=== PATIENT | female | born 1970 | race Caucasian/White ===

== ENCOUNTER 2017-02-05 10:15 | Day surgery (SDC) | payer OTHER ==
[~2017-02-05] VITALS: Ht 172.7 cm; Wt 93.0 kg
[~2017-02-05 10:15] MED LIST: 0.9% Sodium Chloride 1,000 ML IV SCH; ALBU90AE IH; LEVO150T5 PO; NAPR220C11 PO; Sodium Chloride LOK Flush 10 mL Syringe IV PRN; TRIA1TAB5 PO; fentaNYL-PF 50 mCg/mL 2 mL Inj IVPUSH PRN
[2017-02-05] MEDS ORDERED: Propofol 10,000 mCg/mL 20 mL Inj ONE (10:16)
[2017-02-05] MEDS ORDERED: Ketamine 10 mg/mL 20 mL Inj ONE (10:16)
[2017-02-05 10:35] VITALS: BP 123/79; PULSE 66; O2SAT 97
[2017-02-05 11:52] VITALS: BP 118/73; PULSE 67; RESP 14; O2SAT 99
[2017-02-05 12:00] VITALS: BP 114/75; PULSE 68; RESP 14; O2SAT 100
[2017-02-05 12:09] VITALS: BP 112/76; PULSE 65; RESP 16; O2SAT 100
--- NOTE | 2017-02-05 13:04 | PCM.ANEP1 ---
Post Anesthesia PACU Phase 1 Assessment Vital Signs Vital Signs Date Time Temp Pulse Resp B/P Pulse Ox O2 Delivery O2 Flow Rate FiO2 02/05/17 12:09 65 16 112/76 100 Room Air 02/05/17 12:00 68 14 114/75 100 Room Air 02/05/17 11:52 67 14 118/73 99 Room Air 02/05/17 10:35 66 123/79 97 Room Air Anesthetic Administered: GA Level of Alertness: Awake, talking Pain: No Nausea or Vomiting: No CV Function & Hydration Stable: Yes Airway Device: Oxygen Delivery: Room Air Lungs: Clear to Auscultation PACU Phase 2 Assessment Complications: No Follow up Care: N/A Patient Instructions Provided: N/A Terrell Dong MD Feb 05, 2017 13:04
--- NOTE | 2017-02-05 14:23 | ENDO ---
[address] [address] ENDOSCOPY PROCEDURE PATIENT: ODALIS JONES : 1970 MR#: [id number] ADMIT: 02/05/2017 JOB ID: [id number] DATE: 02/05/2017 PROCEDURE: Colonoscopy. INDICATION: Family history of colon cancer. The patient's ASA classification is 1. Mallampati score is 2. MEDICATIONS: 1. Versed 5 mg. 2. Fentanyl 150 mcg. 3. In addition, anesthesia rescue was needed as we were unable to adequately sedate the patient as patient was having pain despite increasing sedation. Please see anesthesia report for details. INSTRUMENT USED: PCF H 180 AL. PREPARATION QUALITY: Was good. PROCEDURE DETAILS: After informed consent was obtained, the patient was brought into the GI suite, where she was placed on oxygen via nasal cannula and monitored with continuous pulse oximeter, telemetry and blood pressure monitoring. A time-out was performed. Then, she was placed in the left lateral decubitus position and medications were administered for sedation. Digital rectal examination was performed, which was unremarkable. The colonoscope was then inserted into the rectum and advanced under direct visualization to the cecum, which was identified by the presence of the ileocecal valve and appendiceal orifice. Once the cecum was reached, the colonoscope was withdrawn back into the rectum as the mucosa and lumen were examined. In the rectum, retroflexion was performed. Following retroflexion, remaining air in the rectum was suctioned, and procedure was completed. FINDINGS: 1. In the transverse colon, there was approximately 5-6 mm flat polyp that was lifted using normal saline and then removed with a hot snare. Following removal, there was a portion of the polyp that still remained and this was removed with Jumbo biopsy forceps. 2. In the sigmoid colon, there was a diminutive polyp that was removed with cold biopsy forceps. IMPRESSION: 1. Transverse colon polyp. 2. Sigmoid polyp. RECOMMENDATIONS: 1. Avoid nonsteroidal anti-inflammatory drugs and anticoagulants for 72 hours. 2. Repeat colonoscopy in five years. COMPLICATIONS: None. ESTIMATED BLOOD LOSS: Less than 5 mL.
--- NOTE | 2017-02-08 14:35 | PATH ---
SURGICAL PATHOLOGY Attending Physician:Nickie Clark CASE STATUS: Signed Out PATIENT NAME: ODALIS JONES PID: [id number] : 1970 DATE COLLECTED:02/05/2017 00:00 SPECIMEN: 1: Colon, Polyp 2: Colon, Polyp CLINICAL HISTORY: 1). TRANSVERSE POLYP 2). SIGMOID POLYP FINAL DIAGNOSIS: 1.TRANSVERSE COLON POLYP: SESSILE SERRATED ADENOMA. 2.SIGMOID COLON POLYP: HYPERPLASTIC POLYP. ICD10 D12.6 GROSS DESCRIPTION: The specimens are received in formalin, labeled with the patient's name and sublabeled as the following: (1) transverse polyp; (2) sigmoid polyp. (1) The specimen consists of multiple fragments of hilton-white, glistening, semi-translucent tissue (1.5 x 0.6 x 0.3 cm in aggregate). Section code: (1A) tissue. Specimen entirely submitted. (2) The specimen consists of multiple fragments of hilton-white, glistening, semi-translucent tissue (0.6 x 0.2 x 0.1 cm in aggregate). Section code: (2A) tissue. Specimen entirely submitted. ([id number]) MICRO DESCRIPTION: See diagnosis. ICD-9 CODES: CPT CODES: 1: 25874 2: 21287 Electronically Signed Out Pedro Pablo Gregg MD [facility] Pathology [facility], [place] [address] Technical component performed at [facility], [facility] [address], [place], [address]
== END 2017-02-05 23:59 | disposition home or self-care (01) ==
LOC: END 10:15
PROVIDERS: ATTEND Internal Medicine Gastroenterology
DX: Z12.11 Encounter for screening for malignant neoplasm of colon (principal); D12.3 Benign neoplasm of transverse colon; K63.5 Polyp of colon; Z80.0 Family history of malignant neoplasm of digestive organs; E03.9 Hypothyroidism, unspecified
CPT/HCPCS: 45380; 45381; 45385; J2250; J3010; J7030